=== PATIENT | female | born 1990 | race Caucasian/White ===

== ENCOUNTER 2016-12-10 10:35 | Emergency (ER) | payer MEDICAID ==
[~2016-12-10] VITALS: Ht 157.5 cm; Wt 65.8 kg
[2016-12-10 12:39] VITALS: BP 120/64
== END 2016-12-10 12:39 | disposition home or self-care (01) ==
LOC: ED 10:35
DX: S83.91XA Sprain of unspecified site of right knee, initial encounter (principal); X50.1XXA Overexertion from prolonged static or awkward postures, initial encounter; Y93.89 Activity, other specified; Y92.89 Other specified places as the place of occurrence of the external cause; Y99.8 Other external cause status

== ENCOUNTER 2016-12-11 14:51 | Emergency (ER) | payer MEDICAID ==
[2016-12-11 18:04] VITALS: BP 151/82
== END 2016-12-11 18:04 | disposition home or self-care (01) ==
LOC: ED 14:51
DX: M25.561 Pain in right knee (principal); M54.5 Low back pain; J45.909 Unspecified asthma, uncomplicated

== ENCOUNTER 2017-03-31 15:05 | Emergency (ER) | payer OTHER ==
[2017-03-31 15:12] VITALS: BP 129/73
[2017-03-31 15:30] LABS: microscopic required? NO
[2017-03-31 15:58] LABS: urine erythrocyte NEGATIVE (NEGATIVE)
[2017-03-31 19:42] LABS: BASOPHIL % 0.2 % (0-2)
[2017-03-31 19:43] LABS: PLATELET COUNT 366 x10^3mcL (130-400); RED CELL DISTRIBUTION WIDTH 12.6 % (11.5-14.5)
== END 2017-03-31 18:35 | disposition left against medical advice (07) ==
LOC: ED 15:05
PROVIDERS: Emergency Medicine
DX: O46.91 Antepartum hemorrhage, unspecified, first trimester (principal); N94.6 Dysmenorrhea, unspecified; Z3A.11 11 weeks gestation of pregnancy
CPT/HCPCS: 36415

== ENCOUNTER 2017-05-22 11:57 | Emergency (ER) | payer OTHER ==
[~2017-05-22] VITALS: Ht 157.5 cm; Wt 64.4 kg
[2017-05-22 12:49] VITALS: BP 138/84
== END 2017-05-22 12:49 | disposition home or self-care (01) ==
LOC: ED 11:57
DX: O26.891 Other specified pregnancy related conditions, first trimester (principal); Z3A.00 Weeks of gestation of pregnancy not specified

== ENCOUNTER 2019-02-21 06:24 | Emergency (ER) | payer OTHER ==
[~2019-02-21] VITALS: Ht 157.5 cm; Wt 69.4 kg
[2019-02-21 06:37] VITALS: Ht 157.5 cm; Wt 69.4 kg
[2019-02-21 08:27] LABS: BASOPHIL % 0.5 % (0-2); PLATELET COUNT 184 x10^3mcL (130-400); RED CELL DISTRIBUTION WIDTH 13.7 % (11.5-14.5)
[2019-02-21 08:41] LABS: CALCIUM 8.1 mg/dL (8.5-10.1); CARBON DIOXIDE 24.3 mmol/L (21-32); CHLORIDE SERUM 103 mmol/L (98-107); CREATININE SERUM 0.7 mg/dL (0.6-1.0); GFR1 > 60 mL/min; GLUCOSE SERUM 90 mg/dL (74-106); POTASSIUM SERUM 3.9 mmol/L (3.5-5.1); SODIUM SERUM 137 mmol/L (136-145)
[2019-02-21 08:46] LABS: ALBUMIN 3.6 g/dL (3.4-5.0); ALKALINE PHOSPHATASE 78 U/L (46-116); ALT/SGPT 18 U/L (14-59); AST/SGOT 13 U/L (15-37); BILIRUBIN TOTAL 0.34 mg/dL (0.20-1.00); TOTAL PROTEIN, SERUM 7.5 g/dL (6.4-8.2)
[2019-02-21 09:49] LABS: microscopic required? NO
[2019-02-21 10:18] LABS: urine erythrocyte NEGATIVE (NEGATIVE)
[2019-02-21 10:35] VITALS: BP 112/65
== END 2019-02-21 10:35 | disposition home or self-care (01) ==
LOC: ED 06:24
PROVIDERS: Emergency Medicine
DX: J11.1 Influenza due to unidentified influenza virus with other respiratory manifestations (principal); J45.901 Unspecified asthma with (acute) exacerbation
CPT/HCPCS: 87804; J2930; J7030

== ENCOUNTER 2020-02-08 02:06 | Emergency (ER) | payer OTHER ==
[~2020-02-08] VITALS: Ht 157.5 cm; Wt 70.3 kg
[2020-02-08 02:23] VITALS: Ht 157.5 cm; Wt 70.3 kg
[2020-02-08 03:26] LABS: UA SPECIFIC GRAVITY >=1.030 (1.005-1.035); microscopic required? YES; urine erythrocyte 1+ (NEGATIVE)
[2020-02-08 03:31] LABS: BASOPHIL % 0.5 % (0-2); PLATELET COUNT 331 x10^3mcL (130-400); RED CELL DISTRIBUTION WIDTH 12.8 % (11.5-14.5)
[2020-02-08 04:10] LABS: CALCIUM 9.2 mg/dL (8.5-10.1); CARBON DIOXIDE 27.3 mmol/L (21-32); CHLORIDE SERUM 102 mmol/L (98-107); CREATININE SERUM 0.8 mg/dL (0.6-1.0); GFR1 > 60 mL/min; GLUCOSE SERUM 107 mg/dL (74-106); POTASSIUM SERUM 3.7 mmol/L (3.5-5.1); SODIUM SERUM 137 mmol/L (136-145)
[2020-02-08 04:15] LABS: ALBUMIN 3.7 g/dL (3.4-5.0); ALKALINE PHOSPHATASE 139 U/L (46-116); ALT/SGPT 52 U/L (14-59); AST/SGOT 106 U/L (15-37); BILIRUBIN TOTAL 0.33 mg/dL (0.20-1.00); LIPASE 108 IU/L (73-393); TOTAL PROTEIN, SERUM 7.7 g/dL (6.4-8.2)
[2020-02-08 05:28] VITALS: BP 111/75
== END 2020-02-08 05:28 | disposition home or self-care (01) ==
LOC: ED 02:06
PROVIDERS: Emergency Medicine
DX: K80.20 Calculus of gallbladder without cholecystitis without obstruction (principal); J45.909 Unspecified asthma, uncomplicated
CPT/HCPCS: J1885; J2405; J7030

== ENCOUNTER 2020-02-12 07:31 | Emergency (ER) | payer OTHER ==
[~2020-02-12] VITALS: Ht 157.5 cm; Wt 71.2 kg
[2020-02-12 07:35] VITALS: Ht 157.5 cm; Wt 71.2 kg
[2020-02-12 08:20] LABS: microscopic required? NO
[2020-02-12 08:23] LABS: BASOPHIL % 0.4 % (0-2); PLATELET COUNT 305 x10^3mcL (130-400); RED CELL DISTRIBUTION WIDTH 13.4 % (11.5-14.5)
[2020-02-12 09:15] LABS: BILIRUBIN DIRECT 1.87 mg/dL (0.0-0.2); BILIRUBIN TOTAL 2.6 mg/dL (0.20-1.00); TOTAL PROTEIN, SERUM 8.1 g/dL (6.4-8.2)
[2020-02-12 09:29] LABS: UA SPECIFIC GRAVITY 1.015 (1.005-1.035); urine erythrocyte NEGATIVE (NEGATIVE)
[2020-02-12 12:01] VITALS: BP 122/73
== END 2020-02-12 12:01 | disposition left against medical advice (07) ==
LOC: ED 07:31
PROVIDERS: Emergency Medicine
DX: K85.90 Acute pancreatitis without necrosis or infection, unspecified (principal); R74.01 Elevation of levels of liver transaminase levels; K80.20 Calculus of gallbladder without cholecystitis without obstruction; J45.909 Unspecified asthma, uncomplicated; Z98.890 Other specified postprocedural states
CPT/HCPCS: J1885; J7030